=== PATIENT | female | born 1970 | race Two or more races ===

== ENCOUNTER 2023-02-16 08:28 | Outpatient (CLI) | payer OTHER | END 2023-02-16 08:40 | disposition home or self-care (01) | LOC: MAMO-SONO 08:28 | PROVIDERS: ATTEND Obstetrics & Gynecology | DX: Z12.31 Encounter for screening mammogram for malignant neoplasm of breast (principal); N60.11 Diffuse cystic mastopathy of right breast; N60.12 Diffuse cystic mastopathy of left breast; R10.2 Pelvic and perineal pain ==

== ENCOUNTER 2023-02-28 12:54 | Outpatient (CLI) | payer OTHER | END 2023-02-28 12:56 | disposition home or self-care (01) | LOC: NUCLEAR 12:54 | PROVIDERS: ATTEND Obstetrics & Gynecology | DX: M81.0 Age-related osteoporosis without current pathological fracture (principal) ==